=== PATIENT | female | born 1960 ===

== ENCOUNTER 2018-10-26 06:46 | Day surgery (SDC) | payer OTHER ==
[~2018-10-26 06:46] MED LIST: ALTACE5 MG PO; ATORVASTATIN CA40 MG PO; GRALISE600 MG PO; TIROSINT75 MCG PO
[2018-10-26] MEDS ORDERED: KEFLEX500 MG PO (11:22)
[2018-10-26] MEDS ORDERED: ZANTAC300 MG PO (11:22)
[2018-10-26] MEDS ORDERED: ULTRACET PO (11:22)
== END 2018-10-26 14:00 | disposition home or self-care (01) ==
LOC: CIR.AMB 06:46
DX: K80.10 Calculus of gallbladder with chronic cholecystitis without obstruction (principal)

== ENCOUNTER 2022-01-18 07:40 | Outpatient (CLI) | payer OTHER ==
[~2022-01-18 07:40] MED LIST changes: +KEFLEX500 MG PO; +ULTRACET PO; +ZANTAC300 MG PO
== END 2022-01-18 07:41 | disposition home or self-care (01) ==
LOC: RX STUDY 07:40
PROVIDERS: ATTEND Family Medicine Adult Medicine
DX: K62.5 Hemorrhage of anus and rectum (principal); Z12.11 Encounter for screening for malignant neoplasm of colon